=== PATIENT | male | born 1990 | race African-American/Black ===

== ENCOUNTER 2020-09-05 09:17 | Emergency (ER) | payer OTHER ==
[~2020-09-05] VITALS: Ht 180.3 cm; Wt 63.6 kg
--- NOTE | 2020-09-05 09:25 | PHYS DOC ---
Past History Past Medical History: No Pertinent History Past Surgical History: No Surgical History Smoking: Non-smoker Alcohol Use: Occasionally Drug Use: None General Adult EDM: Chief Complaint: Cough HPI: HPI: Kade is a 29-year-old male who presents with cough, sore throat, headache, and sinus congestion that started 4 days ago. The patient reports coughing up "clear" mucus and is "struggling" to sleep due to his symptoms. Patient was evaluated at [facility] on September 04 and received a negative Covid test. Patient denies fever or chills. Patient denies vomiting or diarrhea. Denies SOB at this time. Review of Systems: Review of Systems: Constitutional: Denies fever or chills Eyes: Denies redness or eye pain HENT: Reports headache, nasal congestion and sore throat Respiratory: Reports cough; denies shortness of breath Cardiovascular: Denies chest pain or palpitations GI: Denies abdominal pain, diarrhea, or vomiting : Denies dysuria or hematuria Musculoskeletal: Denies back pain or joint pain Integument: Denies rash or skin lesions Neurologic: Denies focal weakness or sensory changes Complete systems were reviewed and found to be within normal limits, except as documented in this note. Physical Exam: PE: Constitutional: Well developed, well nourished, no acute distress, non-toxic appearance HENT: Mild pharynx erythema, mildly enlarged turbinates, tympanic membrane clear/intact Eyes: Conjunctiva normal, no discharge Neck: Normal range of motion, no tenderness, supple Lungs & Thorax: No respiratory distress, equal chest rise and fall Skin: Warm, dry, no erythema, no rash Back: No tenderness, no CVA tenderness Extremities: No tenderness, ROM intact, no edema Neurologic: Alert and oriented X 3, normal motor function Psychologic: Affect normal, judgment normal Radiology/Procedures: Radiology/Procedures: PROCEDURE: CHEST AP ONLY EXAMINATION: Chest radiograph. VIEWS: Single view COMPARISON: None INDICATION:29 years, Male, cough. FINDINGS: Normal cardiomediastinal silhouette. No focal consolidation. Bilateral perihilar peribronchial cuffing. No pleural effusion or pneumothorax. No acute osseous process. IMPRESSION: Bilateral perihilar peribronchial cuffing, nonspecific findings and be seen in infectious/reactive small airway disease. No focal consolidation. Electronically signed by: Pamela Hathaway MD (09/05/2020 9:43 AM) [id number] Heart Score: C/O Chest Pain: N/A Course & Med Decision Making: Course & Med Decision Making Pertinent Imaging studies reviewed. (See chart for details) Patient presents with URI type symptoms x4 days. Afebrile. Sats stable. History of recent negative COVID-19 testing. Chest x-ray without acute finding. Symptomatic treatment provided with one-time dose of oral steroid. Patient stable for discharge with outpatient follow-up with PCP. Discussed findings and plan with patient, who acknowledges understanding and agreement. Dragon Disclaimer: Dragon Disclaimer: This electronic medical record was generated, in whole or in part, using a voice recognition dictation system. Departure Departure: Impression: Primary Impression: Upper respiratory infection Qualified Codes: J06.9 - Acute upper respiratory infection, unspecified Disposition: HOME / SELF CARE / HOMELESS Condition: STABLE Referrals: ANTONIO VASQUES DO (PCP) Patient Instructions: Upper Respiratory Infection, Adult, [id number] Additional Instructions: Use humidifier when sleeping at night. May also use [id number] cold and cough remedies as needed. Scripts Benzonatate (TESSALON PERLE) 100 Mg Capsule 100 MG PO TID PRN PRN for COUGH, #20 CAP Prov: MARIA ELENA BELL DO 09/05/20 MARIA ELENA BELL DO Sep 05, 2020 09:25
[2020-09-05 09:29] VITALS: BP 133/99
[2020-09-05] MEDS ORDERED: DEXAMETHASONE 4 MG TABLET PO ONE (09:45)
--- NOTE | 2020-09-05 09:46 | RAD ---
EXAMINATION: Chest radiograph. VIEWS: Single view COMPARISON: None INDICATION:29 years, Male, cough. FINDINGS: Normal cardiomediastinal silhouette. No focal consolidation. Bilateral perihilar peribronchial cuffin g. No pleural effusion or pneumothorax. No acute osseous process. IMPRESSION: Bilateral perihilar peribronchial cuffing, nonspecific findings and be seen in infectious/reactive sm all airway disease. No focal consolidation. Electronically signed by: Pamela Hathaway MD (09/05/2020 9:43 AM) [id number]
[2020-09-05] MEDS ORDERED: BENZ100C PO (09:52)
== END 2020-09-05 09:58 | disposition home or self-care (01) ==
LOC: ER 09:17
DX: J06.9 Acute upper respiratory infection, unspecified (principal)
CPT/HCPCS: 71045; 99283; J8540

== ENCOUNTER 2020-11-16 21:00 | Emergency (ER) | payer OTHER ==
[~2020-11-16] VITALS: Ht 180.3 cm; Wt 59.1 kg
[~2020-11-16 21:00] MED LIST: BENZ100C PO
--- NOTE | 2020-11-16 21:26 | PHYS DOC ---
Past History Past Medical History: No Pertinent History (ABDON GUDINO APRN) Past Surgical History: No Surgical History (ABDON GUDINO APRN) Smoking: Non-smoker Alcohol Use: Occasionally Drug Use: None (ABDON GUDINO APRN) General Adult EDM: Chief Complaint: DIZZY/LIGHT HEADED HPI: HPI: Patient is a 30-year-old male being seen in the ER for lightheadedness. He describes it as feeling off balance. He states that the symptoms started this morning. He is also complaining of nausea and vomiting, stating that he vomited 3 times today. Patient states he believes he is dehydrated. Patient has a history of intermittent dizziness and had an MRI and vestibular testing last year with no acute findings. Patient denies any chest pain, vision changes, headache, injury. Patient reports that his symptoms have improved throughout the day but are still present. (ABDON GUDINO APRN) Review of Systems: Review of Systems: 14 body systems of the review of systems have been reviewed. See HPI for pertinent positive and negative responses, otherwise all other systems are negative, nonpertinent or noncontributory (ABDON GUDINO APRN) Current Medications: Current Meds: Current Medications Medications (Trade) Dose Ordered Sig/Tyrone Start Time Stop Time Status Last Admin Dose Admin Meclizine HCl (Antivert) 25 mg 1X ONCE 11/16/20 21:45 11/16/20 21:46 Ondansetron HCl (Zofran) 4 mg 1X ONCE 11/16/20 21:45 11/16/20 21:46 Sodium Chloride 1,000 ml @ 1,000 mls/hr 1X ONCE 11/16/20 21:30 11/16/20 22:29 (ABDON GUDINO APRN) Allergies: Allergies: Allergies Coded Allergies Type Severity Reaction Last Updated Verified No Known Drug Allergies 09/05/20 No (ABDON GUDINO APRN) Physical Exam: PE: Constitutional: Well developed, well nourished, no acute distress, non-toxic appearance. [] HENT: Normocephalic, atraumatic, bilateral external ears normal, oropharynx moist, no oral exudates, nose normal. [] Eyes: PERRLA, EOMI, 5 mm pupils bilaterally, conjunctiva normal, no discharge. [] Neck: Normal range of motion, no stridor Cardiovascular:Heart rate tachycardic rhythm, no murmur [] Lungs & Thorax: Bilateral breath sounds clear to auscultation [] Abdomen: Bowel sounds normal, soft, no tenderness, no masses, no pulsatile masses. [] Skin: Warm, dry, no erythema, no rash. [] Back: Normal range of motion Extremities: No tenderness, no cyanosis, no clubbing, ROM intact, no edema. [] Neurologic: Alert and oriented X 3, normal motor function, normal sensory function, no focal deficits noted. [] Psychologic: Affect normal, judgement normal, mood normal. [] (ABDON GUDINO APRN) Current Patient Data: Vital Signs: Vital Signs Date Time Temp Pulse Resp B/P (MAP) Pulse Ox O2 Delivery O2 Flow Rate FiO2 11/16/20 21:08 99.1 130 16 148/95 (112) 97 Room Air (ABDON GUDINO APRN) EKG: EKG: [] (ABDON GUDINO APRN) EKG: My interpretation EKG shows a sinus rhythm at 94 bpm. Right bundle branch block. No findings acute STEMI of, lateral changes. Time of EKG is 2218 hrs. (ROLAND WOOD MD) Radiology/Procedures: Radiology/Procedures: PROCEDURE: CT HEAD WO CONTRAST Exam: CT head INDICATION: Dizziness TECHNIQUE: Sequential axial images through the head were obtained without the administration of IV contrast. Exposure: One or more of the following in the visualized dose reduction techniques were utilized for this examination: 1. Automated exposure control 2. Adjustment of the MA and/or KV according to patient size 3. Use of iterative of reconstructive technique Comparisons: None FINDINGS: No focal parenchymal lesion or hemorrhage is identified. There is no midline shift or sulcal effacement. No acute vascular territory infarction is identified. Shipman-white distinction is preserved. The ventricular system is within normal limits without compression hydrocephalus. The basal cisterns are well maintained. The visualized portions of the paranasal sinuses and mastoid air cells are well- pneumatized. No acute fractures. IMPRESSION: No acute intracranial abnormality. Electronically signed by: Thompson Malloy MD (11/16/2020 9:58 PM) [facility] DICTATED AND SIGNED BY: THOMPSON MALLOY MD DATE: 11/16/202156 CC: ANTONIO VASQUES DO; ABDON GUDINO APRN ~MTH0 0 [] (ABDON GUDINO APRN) Radiology/Procedures: [place] [address] IMAGING REPORT Signed PATIENT: OVIDIO SOOD ACCOUNT: [id number] : 1990 LOCATION: ER AGE: 30 SEX: M EXAM STATUS: REG ER ORD. PHYSICIAN: ABDON GUDINO APRN REASON: dizziness PROCEDURE: CT HEAD WO CONTRAST Exam: CT head INDICATION: Dizziness TECHNIQUE: Sequential axial images through the head were obtained without the administration of IV contrast. Exposure: One or more of the following in the visualized dose reduction techniques were utilized for this examination: 1. Automated exposure control 2. Adjustment of the MA and/or KV according to patient size 3. Use of iterative of reconstructive technique Comparisons: None FINDINGS: No focal parenchymal lesion or hemorrhage is identified. There is no midline shift or sulcal effacement. No acute vascular territory infarction is identified. Shipman-white distinction is preserved. The ventricular system is within normal limits without compression hydrocephalus. The basal cisterns are well maintained. The visualized portions of the paranasal sinuses and mastoid air cells are well- pneumatized. No acute fractures. IMPRESSION: No acute intracranial abnormality. Electronically signed by: Thompson Malloy MD (11/16/2020 9:58 PM) [facility] DICTATED AND SIGNED BY: THOMPSON MALLOY MD DATE: 11/16/202156 CC: ANTONIO VASQUES DO; ABDON GUDINO APRN ~MTH0 0 (ROLAND WOOD MD) Heart Score: C/O Chest Pain: No Risk Factors: Risk Factors: DM, Current or recent (<one month) smoker, HTN, HLP, family history of CAD, obesity. Risk Scores: Score 0 - 3: 2.5% MACE over next 6 weeks - Discharge Home Score 4 - 6: 20.3% MACE over next 6 weeks - Admit for Clinical Observation Score 7 - 10: 72.7% MACE over next 6 weeks - Early Invasive Strategies (ABDON GUDINO APRN) Course & Med Decision Making: Course & Med Decision Making Pertinent Labs and Imaging studies reviewed. (See chart for details) Patient is a 30-year-old male being seen in the ER for feeling lightheaded and off balance with nausea and vomiting. Patient was noted to be tachycardic in the ER. Work-up in the ER consisted of blood work, EKG, CT scan of head. Patient was treated with fluids, nausea medication and Antivert. I discussed patients case with Dr. Wood and he will assume patient care at this time. Lab work pending at this time 2157. (ABDON GUDINO APRN) Course & Med Decision Making See Shadi chart for details prior 0 hrs. Patient gargle with Listerine 4 times a day. Take Tylenol and ibuprofen for pain. Push fluids. Self isolate. Get flu vaccination this fall. Follow-up Co vid results. Impression: 1. Dizzy 2. Dehydration 3. Leukocytosis 4. Viral Syndrome 5. Complaints of pharyngitis. (ROLAND WOOD MD) Dragon Disclaimer: Dragon Disclaimer: This electronic medical record was generated, in whole or in part, using a voice recognition dictation system. (ABDON GUDINO APRN) Departure Departure: Referrals: ANTONIO VASQUES DO (PCP) Attending Signature Attending Signature I have participated in the care of this patient and I have reviewed and agree with all pertinent clinical information above including history, exam, and recommendations. (ROLAND WOOD MD) Dragon Disclaimer This chart was dictated in whole or in part using Voice Recognition software in a busy, high-work load, and often noisy Emergency Department environment. It may contain unintended and wholly unrecognized errors or omissions. (ROLAND WOOD MD) Dragon Disclaimer This chart was dictated in whole or in part using Voice Recognition software in a busy, high-work load, and often noisy Emergency Department environment. It may contain unintended and wholly unrecognized errors or omissions. (ROLAND WOOD MD) ABDON GUDINO APRN Nov 16, 2020 21:26 ROLNAD WOOD MD Nov 16, 2020 22:13
[2020-11-16] MEDS ORDERED: IV NORMAL SALINE 1,000ML 1,000 ML IV ONE (21:30)
[2020-11-16] MEDS ORDERED: ONDANSETRON PF 4 MG/2 ML VIAL. IVP ONE ×2 (21:45→23:30)
[2020-11-16] MEDS ORDERED: MECLIZINE 12.5 MG TABLET. PO ONE (21:45)
--- NOTE | 2020-11-16 22:01 | RAD ---
Exam: CT head INDICATION: Dizziness TECHNIQUE: Sequential axial images through the head were obtained without the administration of IV co ntrast. Exposure: One or more of the following in the visualized dose reduction techniques were utilized for this examination: 1. Automated exposure control 2. Adjustment of the MA and/or KV according to patient size 3. Use of iterative of reconstructive technique Comparisons: None FINDINGS: No focal parenchymal lesion or hemorrhage is identified. There is no midline shift or sulcal effaceme nt. No acute vascular territory infarction is identified. Shipman-white distinction is preserved. The ventricular system is within normal limits without compression hydrocephalus. The basal cisterns are well maintained. The visualized portions of the paranasal sinuses and mastoid air cells are well-pneumatized. No acute fractures. IMPRESSION: No acute intracranial abnormality. Electronically signed by: Thompson Franco MD (11/16/2020 9:58 PM) JUAN PABLO
[2020-11-16 22:05] LABS: BASO # 0.1 x10^3/uL (0.0-0.2); BASO % 0 % (0-3); EOS % 0 % (0-3); HEMATOCRIT 48.3 % (39.0-53.0); LYMPH # 1.3 x10^3/uL (1.0-4.8); LYMPH % 6 % (24-48); MEAN CORPUSCULAR HEMOGLOBIN 31 pg (25-35); MEAN CORPUSCULAR HGB CONC 33 g/dL (31-37); MEAN CORPUSCULAR VOLUME 92 fL (79-100); MONO # 0.9 x10^3/uL (0.0-1.1); MONO % 4 % (0-9); NEUT # 19.1 x10^3uL (1.8-7.7); NEUT % 90 % (31-73); PLATELET COUNT 265 x10^3/uL (140-400); RED BLOOD COUNT 5.22 x10^6/uL (4.30-5.70); RED CELL DISTRIBUTION WIDTH 12.8 % (11.5-14.5); WHITE BLOOD COUNT 21.3 x10^3/uL (4.0-11.0)
[2020-11-16 22:17] LABS: CALCIUM 9.4 mg/dL (8.5-10.1); CREATININE 1.4 mg/dL (0.7-1.3); POTASSIUM 4.5 mmol/L (3.5-5.1)
[2020-11-16 22:23] LABS: ALBUMIN 4.3 g/dL (3.4-5.0); ALBUMIN/GLOBULIN RATIO 1.2 (1.0-1.7); TOTAL BILIRUBIN 0.8 mg/dL (0.2-1.0); TOTAL PROTEIN 7.8 g/dL (6.4-8.2)
[2020-11-16 22:40] LABS: % BANDS 7 % (0-9); % LYMPHS 7 % (24-48); % MONOS 1 % (0-10); % SEGS 85 % (35-66); PLT ESTIMATE ADEQUATE (ADEQUATE)
--- NOTE | 2020-11-17 00:37 | EKG ---
[address] [address] Test Date: 2020-11-16 Test Time: 22:18:08 Pat Name: OVIDIO SOOD Department: Room: Gender: M [employer]: : 1990 Requested By: ABDON GUDINO Order Number: [id number] Reading MD: Measurements Intervals [place] Rate: 94 P: 80 NM: 142 QRS: 26 QRSD: 80 T: 75 QT: 320 QTc: 405 Interpretive Statements SINUS RHYTHM INCOMPLETE RIGHT BUNDLE BRANCH BLOCK T ABNORMALITY IN HIGH LATERAL LEADS ABNORMAL ECG RI6.02 No previous ECG available for comparison
[2020-11-17 01:47] LABS: INFLUENZA A PATIENT NEGATIVE (NEGATIVE); INFLUENZA B PATIENT NEGATIVE (NEGATIVE)
[2020-11-17 02:00] VITALS: BP 136/72
--- NOTE | 2020-11-19 14:32 | NUR ---
IP: Informed pt and pt of negative covid test, verbalized understanding.
== END 2020-11-17 02:12 | disposition home or self-care (01) ==
LOC: ER 21:00
DX: E86.0 Dehydration (principal); R42 Dizziness and giddiness; D72.829 Elevated white blood cell count, unspecified; B34.9 Viral infection, unspecified; J02.9 Acute pharyngitis, unspecified; Z20.822 Contact with and (suspected) exposure to COVID-19
CPT/HCPCS: 36415; 70450; 80053; 84484; 85007; 85025; 87070; 87804; 87880; 93005; 96361; 96374; 96375; 99285; C9803; J2405; J7030; U0003

== ENCOUNTER 2020-12-27 07:24 | Emergency (ER) | payer OTHER ==
[~2020-12-27] VITALS: Ht 180.3 cm; Wt 65.9 kg
--- NOTE | 2020-12-27 07:35 | PHYS DOC ---
Past History Past Medical History: No Pertinent History Past Surgical History: No Surgical History Smoking: Non-smoker Alcohol Use: Occasionally Drug Use: None Adult General Chief Complaint Chief Complaint: HEADACHE HPI HPI Patient is a 30-year-old male who presents with headaches for the past 2 days. He was diagnosed with migraines a year ago which were accompanied with his dizziness double vision which have improved on Lexapro. Patient's current migraine started 2 days ago and has not improved with Tylenol, sleep or cold compresses. Pain is throbbing in character started at the top of his head moved to the left side and currently its at the front of his head bilaterally. He denies fever, chills, nausea, vomiting, chest pains, or shortness of breath. Pain is worse when he does not consume food or gets poor sleep. Currently nothing has improved his pain. Pain is constant and 7 out of 10 in severity. He drinks 1 beer per month and denies any recreational drug use. He used to smoke cigarettes, he smoked 1 cigarette/day for 3 years and quit 4 years ago. H e denies past surgical history or having allergies. Review of Systems Review of Systems Fourteen body systems of review of systems have been reviewed. See HPI for pertinent positives and negative responses, other waters all other systems are negative, non-pertinent or non-contributory Allergies Allergies Allergies Coded Allergies Type Severity Reaction Last Updated Verified No Known Drug Allergies 09/05/20 No Physical Exam Physical Exam Constitutional: Well developed, well nourished, no acute distress, non-toxic appearance. HENT: Normocephalic, atraumatic, bilateral external ears normal, oropharynx moist, no oral exudates, nose normal. Eyes: PERRLA, EOMI, conjunctiva normal, no discharge. Neck: Normal range of motion, no tenderness, supple, no stridor. No meningeal signs, no nuchal rigidity Cardiovascular: Heart rate regular, sinus rhythm, no murmurs rubs or gallops Lungs & Thorax: Bilateral breath sounds clear to auscultation Abdomen: Bowel sounds normal, soft, no tenderness, no masses, no pulsatile masses. Nonsurgical abdomen, no peritoneal signs Skin: Warm, dry, no erythema, no rash. Back: No tenderness, no CVA tenderness. Extremities: No tenderness, no cyanosis, no clubbing, ROM intact, no edema. Neurologic: Alert and oriented X 3, cranial nerves II through XII intact, normal motor & sensory function, no focal deficits noted. Psychologic: Affect normal, judgement normal, mood normal. Current Patient Data Vital Signs Vital Signs Date Time Temp Pulse Resp B/P (MAP) Pulse Ox O2 Delivery O2 Flow Rate FiO2 12/27/20 07:34 98.7 66 18 137/94 (108) 95 Room Air Vital Signs Date Time Temp Pulse Resp B/P (MAP) Pulse Ox O2 Delivery O2 Flow Rate FiO2 12/27/20 07:34 98.7 66 18 137/94 (108) 95 Room Air EKG EKG [] Radiology/Procedures Radiology/Procedures [] Heart Score C/O Chest Pain: No Risk Factors: Risk Factors: DM, Current or recent (<one month) smoker, HTN, HLP, family history of CAD, obesity. Risk Scores: Risk Factors: DM, Current or recent (<one month) smoker, HTN, HLP, family history of CAD, obesity. Course & Med Decision Making Course & Med Decision Making ABCs unremarkable. I disclosed entirety of ER findings and discussed most likely diagnosis of migraine headache consistent with prior episodes. Other diagnoses were discussed with patient such as meningitis and other concerning intracranial abnormalities but all deemed less likely causes of patient's presentation. Patient symptoms improved with administered therapy in ER setting. Plan of care discussed at length with need for close outpatient follow-up to review today's ER visit stressed. Strict return precautions were also discussed at length with good understanding verbalized by patient. Patient voiced understanding and agreement with the plan. Patient knows to come back for repeat evaluation if concerning signs or symptoms present prior to outpatient follow-up. Hemodynamically stable, ambulatory and well-appearing at time of disposition. Dragon Disclaimer Dragon Disclaimer This electronic medical record was generated, in whole or in part, using a voice recognition dictation system. Departure Departure: Impression: Primary Impression: Migraine Disposition: HOME / SELF CARE / HOMELESS Condition: IMPROVED Referrals: ANTONIO VASQUES DO (PCP) Patient Instructions: Migraine Headache Additional Instructions: You were seen for a headache. Your symptoms improved with a headache medication, an anti-nausea medication and gentle fluid hydration. You should return to the ED if you develop worsening pain, vision change, numbness, tingling, weakness, vomiting, fever, neck pain, or any other new or concerning symptoms. You need to follow up with your primary care physician in addition to your outpatient neurologist further evaluation and treatment. ROMELIA HUMPHREY DO Dec 27, 2020 07:35
[2020-12-27] MEDS ORDERED: PROCHLORPERAZINE 10 MG/2 ML VIAL. ONE (08:06)
[2020-12-27] MEDS ORDERED: diphenhydrAMINE 50 MG/ML VIAL ONE (08:06)
[2020-12-27] MEDS ORDERED: diphenhydrAMINE 50 MG/ML VIAL IVP ONE (08:15)
[2020-12-27] MEDS ORDERED: IV NORMAL SALINE 1,000ML 1,000 ML IV ONE (08:15)
[2020-12-27] MEDS ORDERED: PROCHLORPERAZINE 10 MG/2 ML VIAL. IV ONE (08:15)
[2020-12-27 08:59] VITALS: BP 128/74
== END 2020-12-27 09:31 | disposition home or self-care (01) ==
LOC: ER 07:24
DX: G43.909 Migraine, unspecified, not intractable, without status migrainosus (principal)
CPT/HCPCS: 96361; 96374; 96375; 99284; J0780; J1200; J7030

== ENCOUNTER 2021-02-11 12:41 | Emergency (ER) | payer OTHER ==
[~2021-02-11] VITALS: Ht 180.3 cm; Wt 59.7 kg
[2021-02-11] MEDS ORDERED: ONDANSETRON ODT 4 MG TAB.RAPDIS PO ONE (13:15)
--- NOTE | 2021-02-11 13:18 | PHYS DOC ---
Past History Past Medical History: No Pertinent History (MARIA ELENA TAI APRN) Past Surgical History: No Surgical History (MARIA ELENA TAI APRN) Smoking: Non-smoker Alcohol Use: None Drug Use: None (MARIA ELENA TAI APRN) Adult General Chief Complaint Chief Complaint: NAUSEA/VOMITING/DIARRHEA HPI HPI Patient is a 30-year-old male presents emergency department complaining of nausea. Patient reports he developed a migraine last night and took his migraine medication. Patient reports when he takes his migraine medication in the evening time he gets periods of nausea. This happened again today. Patient denies any vomiting today. Patient reports his migraine has resolved and he has ongoing nausea at this time only. Patient reports this migraine onset was normal for his normal migraines and is currently rating a 1 out of 10 pain. Denies diarrhea or abdominal pains. Denies recent fever or chills. Denies chest pains or shortness of breath, denies other physical complaints or physical concerns. (MARIA ELENA TAI APRN) Review of Systems Review of Systems 14 body systems of review of systems have been reviewed. See HPI for pertinent positives and negative responses, otherwise all other systems are negative, nonpertinent or noncontributory. Constitutional: Negative except as outlined in HPI above. Skin: Negative except as outlined in HPI above. Eyes: Negative except as outlined in HPI above. HENT: Negative except as outlined in HPI above. Respiratory: Negative except as outlined in HPI above. Cardiovascular: Negative except as outlined in HPI above. GI: Negative except as outlined in HPI above. : Negative except as outlined in HPI above. Musculoskeletal: Negative except as outlined in HPI above. Integument: Negative except as outlined in HPI above. Neurologic: Negative except as outlined in HPI above. Endocrine: Negative except as outlined in HPI above. Lymphatic: Negative except as outlined in HPI above. Psychiatric: Negative except as outlined in HPI above. (MARIA ELENA TAI APRN) Allergies Allergies Allergies Coded Allergies Type Severity Reaction Last Updated Verified No Known Drug Allergies 09/05/20 No (MARIA ELENA TAI APRN) Physical Exam Physical Exam Constitutional: Well developed, well nourished, no acute distress, non-toxic appearance. 30-year-old male in no apparent distress. HENT: Normocephalic, atraumatic. Eyes: Conjunctiva normal, no discharge. Neck: Normal range of motion, no stridor. Cardiovascular: No cyanosis appreciated, distal cap refill less than 2 seconds. Lungs & Thorax: Patient is in no respiratory distress, no audible adventitious lung sounds appreciated. Abdomen: Nontender, no abnormalities noted. Skin: Warm, dry, no erythema, no rash. Back: No tenderness, no deformities. Extremities: No tenderness, no cyanosis, no clubbing, ROM intact, no edema. Neurologic: Alert and oriented X 3, normal motor function, normal sensory function, no focal deficits noted. Psychologic: Affect normal, judgement normal, mood normal. (MARIA ELENA TAI APRN) Current Patient Data Vital Signs Vital Signs Date Time Temp Pulse Resp B/P (MAP) Pulse Ox O2 Delivery O2 Flow Rate FiO2 02/11/21 13:05 98.7 73 18 134/89 (104) 98 Room Air (MARIA ELENA TAI APRN) EKG EKG [] (MARIA ELENA TAI APRN) Radiology/Procedures Radiology/Procedures [] (MARIA ELENA TAI APRN) Heart Score C/O Chest Pain: No Risk Factors: Risk Factors: DM, Current or recent (<one month) smoker, HTN, HLP, family history of CAD, obesity. Risk Scores: Risk Factors: DM, Current or recent (<one month) smoker, HTN, HLP, family history of CAD, obesity. (MARIA ELENA TAI APRN) Course & Med Decision Making Course & Med Decision Making Pertinent Labs and Imaging studies reviewed. (See chart for details) 30-year-old male, vital signs reviewed, resents emergency department concerning nausea without vomiting. Physical examination nonconcerning for an emergent condition, will order ODT Zofran for reported nausea and reevaluate after period of time. Upon reevaluation of patient, patient reports resolution of all his symptoms, states he is ready to go home now. P.o. challenge patient drinking water without returning nausea or vomiting. Will discharge patient to home. Discussed with the patient all findings and diagnostic testing as well as the need to follow-up with their primary care provider for further evaluation and treatment or return to the ED if any new or worsening symptoms. Strict return precautions were also discussed at length, the patient voiced understanding and agreement with the discharge planning. The patient was nontoxic in appearance, in no apparent distress, and hemodynamically stable at the time of disposition. (MARIA ELENA TAI APRN) Dragon Disclaimer Dragon Disclaimer This electronic medical record was generated, in whole or in part, using a voice recognition dictation system. (MARIA ELENA TAI APRN) Attending Co-Sign The patient was seen and interviewed as well as examined at the bedside. The chart was reviewed. The case was discussed. Agree with the plan of care. (SIVA FARAH DO) Departure Departure: Impression: Primary Impression: Nausea Disposition: HOME / SELF CARE / HOMELESS Condition: GOOD Referrals: ANTONIO VASQUES DO (PCP) Patient Instructions: Nausea, Adult Additional Instructions: You are seen today in the emergency department for nausea. You are given an oral dose of Zofran which seemed to help you. Please follow-up with your primary care physician for ongoing nausea problems. Return to the emergency department for worsening symptoms or other concerns. Thank you for visiting our Emergency Department. It was a pleasure taking care of you today in the emergency department and we appreciate you trusting us with your care. If any additional problems come up don't hesitate to return to visit us. Please follow up with your primary care provider so they can plan additional care if needed and know about the problem that you had. If symptoms worsen come back to the Emergency Department. Any concerning symptoms that start such as chest pain, shortness of air, weakness or numbness on one side of the body, running high fevers or any other concerning symptoms return to the ER. MARIA ELENA TAI APRN Feb 11, 2021 13:18 SIVA FARAH DO Feb 13, 2021 10:53
[2021-02-11 14:30] VITALS: BP 128/87
== END 2021-02-11 14:54 | disposition home or self-care (01) ==
LOC: ER 12:41
DX: R11.0 Nausea (principal); G43.909 Migraine, unspecified, not intractable, without status migrainosus
CPT/HCPCS: 99283; Q0162

== ENCOUNTER 2021-02-23 12:45 | Emergency (ER) | payer OTHER ==
[~2021-02-23] VITALS: Ht 180.3 cm; Wt 68.2 kg
[2021-02-23 13:01] VITALS: BP 138/95
--- NOTE | 2021-02-23 13:01 | PHYS DOC ---
Past History Past Medical History: No Pertinent History Past Surgical History: No Surgical History Smoking: Non-smoker Alcohol Use: None Drug Use: None General Adult EDM: Chief Complaint: Fatigue HPI: HPI: 30-year-old male presents with 2-day history of cough, fatigue, body aches, nasal congestion. The patient has not noticed a fever at home. He is vaccinated against COVID-19 with his second vaccine in November. He got his influenza vaccine about a week ago. Patient presents today with concern for COVID-19 and would like to be tested. He denies significant shortness of breath or chest pain. Review of Systems: Review of Systems: Constitutional: Denies fever or chills. Body aches, fatigue. Eyes: Denies change in visual acuity HENT: Nasal congestion Respiratory: Intermittent cough without shortness of breath Cardiovascular: Denies chest pain or edema GI: Denies abdominal pain, nausea, vomiting, bloody stools or diarrhea : Denies dysuria Musculoskeletal: Denies back pain or joint pain Integument: Denies rash Neurologic: Denies headache, focal weakness or sensory changes Endocrine: Denies polyuria or polydipsia Lymphatic: Denies swollen glands Psychiatric: Denies depression or anxiety Allergies: Allergies: Allergies Coded Allergies Type Severity Reaction Last Updated Verified No Known Drug Allergies 09/05/20 No Physical Exam: PE: Constitutional: Well developed, well nourished, no acute distress, non-toxic appearance. [] HENT: Normocephalic, atraumatic, bilateral external ears normal, oropharynx moist, no oral exudates, nose normal. [] Eyes: PERRLA, EOMI, conjunctiva normal, no discharge. [] Neck: Normal range of motion, no tenderness, supple, no stridor. [] Cardiovascular: Heart rate regular rhythm, no murmur [] Lungs & Thorax: Bilateral breath sounds clear to auscultation [] Abdomen: Bowel sounds normal, soft, no tenderness, no masses, no pulsatile masses. [] Skin: Warm, dry, no erythema, no rash. [] Back: No tenderness, no CVA tenderness. [] Extremities: No tenderness, no cyanosis, no clubbing, ROM intact, no edema. [] Neurologic: Alert and oriented X 3, normal motor function, normal sensory function, no focal deficits noted. [] Psychologic: Affect normal, judgement normal, mood normal. [] EKG: EKG: [] Radiology/Procedures: Radiology/Procedures: [] Heart Score: C/O Chest Pain: N/A Risk Factors: Risk Factors: DM, Current or recent (<one month) smoker, HTN, HLP, family history of CAD, obesity. Risk Scores: Score 0 - 3: 2.5% MACE over next 6 weeks - Discharge Home Score 4 - 6: 20.3% MACE over next 6 weeks - Admit for Clinical Observation Score 7 - 10: 72.7% MACE over next 6 weeks - Early Invasive Strategies Course & Med Decision Making: Course & Med Decision Making Pertinent Labs and Imaging studies reviewed. (See chart for details) We have swabbed the patient for influenza and COVID-19. COVID-19 results would not be available till at least tomorrow. The patient's influenza is negative. This is likely viral URI. He is stable for discharge at this time. [] Dragon Disclaimer: Dragon Disclaimer: This electronic medical record was generated, in whole or in part, using a voice recognition dictation system. Departure Departure: Impression: Primary Impression: URI (upper respiratory infection) Disposition: HOME / SELF CARE / HOMELESS Condition: STABLE Referrals: PCP,UNKNOWN (PCP) Patient Instructions: Upper Respiratory Infection, Adult, [id number] SIVA FARAH DO Feb 23, 2021 13:01
[2021-02-23 13:46] LABS: INFLUENZA A PATIENT NEGATIVE (NEGATIVE); INFLUENZA B PATIENT NEGATIVE (NEGATIVE)
== END 2021-02-23 14:02 | disposition home or self-care (01) ==
LOC: ER 12:45
DX: U07.1 COVID-19 (principal); J06.9 Acute upper respiratory infection, unspecified
CPT/HCPCS: 87804; 99283; C9803; U0003

== ENCOUNTER 2021-03-19 12:26 | Emergency (ER) | payer OTHER ==
[~2021-03-19] VITALS: Ht 180.3 cm; Wt 68.2 kg
--- NOTE | 2021-03-19 14:41 | PHYS DOC ---
Past History Past Medical History: No Pertinent History Past Surgical History: No Surgical History Smoking: Non-smoker Alcohol Use: None Drug Use: None General Adult EDM: Chief Complaint: MULTIPLE COMPLAINTS HPI: HPI: 30-year-old male presents with headache, dizziness, and brain fog. The patient has had the symptoms for about a year and a half. He has seen a neurologist and a primary care physician and had a pretty extensive work-up. He presents today because he had the symptoms again last night and when he woke up this morning he had a headache and dizziness and was unable to go to work. He describes the dizziness as a lightheaded, off-balance feeling. He states he can tell that he does not walk straight. He decided he should come in for evaluation since he was not feeling any better compared to last night. The symptoms usually abdomen flow and go away or at least decrease significantly overnight. The only pattern to his symptoms as they seem to get worse about an hour after he eats. It does not matter what he eats or when. He denies fever or chills. He has an appointment set up with a new primary care physician in about a week. Denies any smoking, vaping, drug or alcohol use. Review of Systems: Review of Systems: Constitutional: Denies fever or chills Eyes: Denies change in visual acuity HENT: Denies nasal congestion or sore throat Respiratory: Denies cough or shortness of breath Cardiovascular: Denies chest pain or edema GI: Denies abdominal pain, nausea, vomiting, bloody stools or diarrhea : Denies dysuria Musculoskeletal: Denies back pain or joint pain Integument: Denies rash Neurologic: Headache, dizziness. Denies focal weakness or sensory changes Endocrine: Denies polyuria or polydipsia Lymphatic: Denies swollen glands Psychiatric: Denies depression or anxiety Allergies: Allergies: Allergies Coded Allergies Type Severity Reaction Last Updated Verified No Known Drug Allergies 09/05/20 No Physical Exam: PE: Constitutional: Well developed, well nourished, no acute distress, non-toxic appearance. [] HENT: Normocephalic, atraumatic, bilateral external ears normal, oropharynx moist, no oral exudates, nose normal. [] Eyes: PERRLA, EOMI, conjunctiva normal, no discharge. [] Neck: Normal range of motion, no tenderness, supple, no stridor. [] Cardiovascular:Heart rate regular rhythm, no murmur [] Lungs & Thorax: Bilateral breath sounds clear to auscultation [] Abdomen: Bowel sounds normal, soft, no tenderness, no masses, no pulsatile masses. [] Skin: Warm, dry, no erythema, no rash. [] Back: No tenderness, no CVA tenderness. [] Extremities: No tenderness, no cyanosis, no clubbing, ROM intact, no edema. [] Neurologic: Alert and oriented X 3, normal motor function, normal sensory function, no focal deficits noted. [] Psychologic: Affect normal, judgement normal, mood normal. [] Current Patient Data: Vital Signs: Vital Signs Date Time Temp Pulse Resp B/P (MAP) Pulse Ox O2 Delivery O2 Flow Rate FiO2 03/19/21 13:54 98.5 83 16 129/89 (102) 100 Room Air EKG: EKG: [] Radiology/Procedures: Radiology/Procedures: [] Heart Score: C/O Chest Pain: N/A Risk Factors: Risk Factors: DM, Current or recent (<one month) smoker, HTN, HLP, family history of CAD, obesity. Risk Scores: Score 0 - 3: 2.5% MACE over next 6 weeks - Discharge Home Score 4 - 6: 20.3% MACE over next 6 weeks - Admit for Clinical Observation Score 7 - 10: 72.7% MACE over next 6 weeks - Early Invasive Strategies Course & Med Decision Making: Course & Med Decision Making Pertinent Labs and Imaging studies reviewed. (See chart for details) The patient labs are unremarkable. I really do not have anything else to offer the patient. I have advised that he continue to follow-up with his new primary doctor and neurology. He may even consider second opinion from another neurologist. He is stable for discharge at this time. [] Dragon Disclaimer: Dragon Disclaimer: This electronic medical record was generated, in whole or in part, using a voice recognition dictation system. Departure Departure: Impression: Primary Impression: Headache Qualified Codes: R51.9 - Headache, unspecified Additional Impression: Dizziness Disposition: HOME / SELF CARE / HOMELESS Condition: STABLE Referrals: PCP,UNKNOWN (PCP) Patient Instructions: Dizziness, [id number], General Headache Without Cause, [id number] SIVA FARAH DO Mar 19, 2021 14:41
[2021-03-19] MEDS ORDERED: IV NORMAL SALINE 1,000ML 1,000 ML IV ONE (14:45)
[2021-03-19 15:48] LABS: BASO % 1 % (0-3); EOS % 0 % (0-3); HEMATOCRIT 44.5 % (39.0-53.0); LYMPH # 1.3 x10^3/uL (1.0-4.8); LYMPH % 21 % (24-48); MEAN CORPUSCULAR HEMOGLOBIN 31 pg (25-35); MEAN CORPUSCULAR HGB CONC 34 g/dL (31-37); MEAN CORPUSCULAR VOLUME 93 fL (79-100); MONO # 0.5 x10^3/uL (0.0-1.1); MONO % 8 % (0-9); NEUT # 4.3 x10^3uL (1.8-7.7); NEUT % 69 % (31-73); PLATELET COUNT 228 x10^3/uL (140-400); RED BLOOD COUNT 4.78 x10^6/uL (4.30-5.70); RED CELL DISTRIBUTION WIDTH 13.2 % (11.5-14.5); WHITE BLOOD COUNT 6.2 x10^3/uL (4.0-11.0)
[2021-03-19 16:04] LABS: BILIRUBIN,URINE NEG (NEG); CLARITY,URINE CLEAR; COLOR,URINE YELLOW; GLUCOSE,URINE NEG (NEG)
[2021-03-19 16:05] LABS: BACTERIA,URINE 0 /HPF (0-FEW); NITRITE,URINE NEG (NEG); RBC,URINE 0 /HPF (0-2); UROBILINOGEN,URINE 0.2 mg/dL (0.2 mg/dL); WBC,URINE 0 /HPF (0-4)
[2021-03-19 16:08] LABS: ANION GAP 9 (6-14); BLOOD UREA NITROGEN 13 mg/dL (8-26); BUN/CREATININE RATIO 12 (6-20); CALCIUM 9.2 mg/dL (8.5-10.1); CARBON DIOXIDE 29 mmol/L (21-32); CHLORIDE 102 mmol/L (98-107); CREATININE 1.1 mg/dL (0.7-1.3); GFR 95.1; GLUCOSE 93 mg/dL (70-99); POTASSIUM 4.9 mmol/L (3.5-5.1); SODIUM 140 mmol/L (136-145)
[2021-03-19 16:14] LABS: ALBUMIN 4.5 g/dL (3.4-5.0); ALBUMIN/GLOBULIN RATIO 1.5 (1.0-1.7); ALK PHOS 55 U/L (46-116); ALT (SGPT) 18 U/L (16-63); AST (SGOT) 17 U/L (15-37); TOTAL BILIRUBIN 0.5 mg/dL (0.2-1.0); TOTAL PROTEIN 7.6 g/dL (6.4-8.2)
[2021-03-19 16:21] LABS: C REACTIVE PROTEIN < 0.5 mg/L (0-3.3)
[2021-03-19 16:38] VITALS: BP 120/77
== END 2021-03-19 16:39 | disposition home or self-care (01) ==
LOC: ER 12:26
DX: R51.9 Headache, unspecified (principal); R42 Dizziness and giddiness
CPT/HCPCS: 36415; 80053; 81001; 82550; 85025; 86140; 96360; 99283; J7030

== ENCOUNTER 2021-03-23 10:57 | Emergency (ER) | payer OTHER ==
[~2021-03-23] VITALS: Ht 180.3 cm; Wt 61.8 kg
[2021-03-23] MEDS ORDERED: ONDANSETRON PF 4 MG/2 ML VIAL. IVP ONE (11:30)
[2021-03-23] MEDS ORDERED: IV NORMAL SALINE 1,000ML 1,000 ML IV ONE (11:30)
[2021-03-23] MEDS ORDERED: LIDO:MAALOX 1:1 20 ML SINGLE DOSE. PO ONE (11:30)
--- NOTE | 2021-03-23 11:34 | PHYS DOC ---
Past History Past Medical History: No Pertinent History (ABDON GUDINO APRN) Past Surgical History: No Surgical History (ABDON GUDINO APRN) Smoking: Non-smoker Alcohol Use: None Drug Use: None (ABDON GUDINO APRN) General Adult EDM: Chief Complaint: NAUSEA/VOMITING/DIARRHEA HPI: HPI: Patient is a 30-year-old male who presents to the emergency department for nausea, vomiting, loss of smell, dizziness. Patient reports that he started having symptoms last week and was seen in this emergency department on Thursday for similar complaints and he had a negative work-up. He states that his symptoms had improved and then he ate a big meal last night and started having nausea and vomiting with epigastric pain. He reports that the meal last night was spicy. He reports vomiting 1 time this morning. He denies any diarrhea, fevers, loss of taste, cough, shortness of breath, sick exposures. (ABDON GUDINO APRN) Review of Systems: Review of Systems: Constitutional: negative unless reported in HPI Eyes: negative unless reported in HPI HENT: negative unless reported in HPI Respiratory: negative unless reported in HPI Cardiovascular: negative unless reported in HPI GI: negative unless reported in HPI : negative unless reported in HPI Musculoskeletal: negative unless reported in HPI Integument: negative unless reported in HPI Neurologic: negative unless reported in HPI Endocrine: negative unless reported in HPI Lymphatic: negative unless reported in HPI Psychiatric: negative unless reported in HPI (ABDON GUDINO APRN) Current Medications: Current Meds: Current Medications Medications (Trade) Dose Ordered Sig/Tyrone Start Time Stop Time Status Last Admin Dose Admin Multi-Ingredient Mouthwash/Gargle (Gi Cocktail) 20 ml 1X ONCE 03/23/21 11:30 03/23/21 11:31 UNV Ondansetron HCl (Zofran) 4 mg 1X ONCE 03/23/21 11:30 03/23/21 11:31 UNV Sodium Chloride 1,000 ml @ 1,000 mls/hr 1X ONCE 03/23/21 11:30 03/23/21 12:29 UNV (ABDON GUDINO APRN) Allergies: Allergies: Allergies Coded Allergies Type Severity Reaction Last Updated Verified No Known Drug Allergies 03/23/21 No (ABDON GUDINO APRN) Physical Exam: PE: Constitutional: Well developed, well nourished, no acute distress, non-toxic appearance. [] HENT: Normocephalic, atraumatic, bilateral external ears normal, oropharynx moist, no oral exudates, nose normal. [] Eyes: PERRL, EOMI, conjunctiva normal, no discharge. [] Neck: Normal range of motion, no tenderness, supple, no stridor. [] Cardiovascular:Heart rate regular rhythm, no murmur [] Lungs & Thorax: Bilateral breath sounds clear to auscultation [] Abdomen: Bowel sounds normal, soft, mild tenderness with palpation to epigastric and medial upper abdomen, no masses, no abdominal rigidity or guarding, no no pulsatile masses. [] Skin: Warm, dry, no erythema, no rash. [] Back: Normal range of motion, Extremities: No tenderness, no cyanosis, no clubbing, ROM intact, no edema. [] Neurologic: Alert and oriented X 3, normal motor function, normal sensory function, no focal deficits noted. [] Psychologic: Affect normal, judgement normal, mood normal. [] (ABDON GUDINO APRN) Current Patient Data: Labs: Laboratory Tests Test 03/23/21 11:51 White Blood Count 7.4 x10^3/uL Red Blood Count 4.68 x10^6/uL Hemoglobin 14.7 g/dL Hematocrit 43.8 % Mean Corpuscular Volume 93 fL Mean Corpuscular Hemoglobin 31 pg Mean Corpuscular Hemoglobin Concent 34 g/dL Red Cell Distribution Width 13.4 % Platelet Count 245 x10^3/uL Neutrophils (%) (Auto) 61 % Lymphocytes (%) (Auto) 29 % Monocytes (%) (Auto) 9 % Eosinophils (%) (Auto) 1 % Basophils (%) (Auto) 1 % Neutrophils # (Auto) 4.5 x10^3uL Lymphocytes # (Auto) 2.1 x10^3/uL Monocytes # (Auto) 0.6 x10^3/uL Eosinophils # (Auto) 0.1 x10^3/uL Basophils # (Auto) 0.0 x10^3/uL Urine Collection Type Unknown Urine Color Yellow Urine Clarity Clear Urine pH 6.0 Urine Specific [place] >=1.030 Urine Protein Neg Urine Glucose (UA) Neg mg/dL Urine Ketones (Stick) Neg mg/dL Urine Blood Neg Urine Nitrite Neg Urine Bilirubin Neg Urine Urobilinogen Dipstick 1.0 mg/dL Urine Leukocyte Esterase Neg Urine RBC Occ /HPF Urine WBC 1-4 /HPF Urine Squamous Epithelial Cells Few /LPF Urine Bacteria 0 /HPF Urine Mucus Slight /LPF Sodium Level 140 mmol/L Potassium Level 4.0 mmol/L Chloride Level 101 mmol/L Carbon Dioxide Level 30 mmol/L Anion Gap 9 Blood Urea Nitrogen 11 mg/dL Creatinine 1.3 mg/dL Estimated GFR (Cockcroft-Gault) 78.4 BUN/Creatinine Ratio 8 Glucose Level 97 mg/dL Calcium Level 8.7 mg/dL Total Bilirubin 0.3 mg/dL Aspartate Amino Transf (AST/SGOT) 12 U/L Alanine Aminotransferase (ALT/SGPT) 19 U/L Alkaline Phosphatase 56 U/L Total Protein 7.6 g/dL Albumin 4.3 g/dL Albumin/Globulin Ratio 1.3 Lipase 105 U/L Influenza Type A (Rapid) Negative Influenza Type B (Rapid) Negative SARS-CoV-2 Antigen (Rapid) Negative Current Medications Medications (Trade) Dose Ordered Sig/Tyrone Route PRN Reason Start Time Stop Time Status Last Admin Dose Admin Sodium Chloride 1,000 ml @ 1,000 mls/hr 1X ONCE IV 03/23/21 11:30 03/23/21 12:29 DC 03/23/21 11:30 Ondansetron HCl (Zofran) 4 mg 1X ONCE IVP 03/23/21 11:30 03/23/21 11:31 DC 03/23/21 11:54 Multi-Ingredient Mouthwash/Gargle (Gi Cocktail) 20 ml 1X ONCE PO 03/23/21 11:30 03/23/21 11:31 DC 03/23/21 11:54 Iohexol (Omnipaque 300 Mg/ml) 75 ml 1X ONCE IV 03/23/21 12:00 03/23/21 12:01 DC 03/23/21 12:09 Vital Signs: Vital Signs Date Time Temp Pulse Resp B/P (MAP) Pulse Ox O2 Delivery O2 Flow Rate FiO2 03/23/21 11:16 98.5 88 18 139/92 (108) Room Air (ABDON GUDINO APRN) EKG: EKG: [] (ABDON GUDINO APRN) Radiology/Procedures: Radiology/Procedures: []PROCEDURE: CT ABD PELV W/ IV CONTRST ONLY CT ABDOMEN+PELVIS W dated 03/23/2021 12:04 PM Indication:Reason: abdominal pain, n/v / Spl. Instructions: omni 300 75iv only, >60GFR / History: Comparison: No comparison is available. Technique: CT images were made through the abdomen and pelvis using infusion of 75 mL Omnipaque 300. No oral contrast was given. One or more of the following individualized dose reduction techniques were utilized for this examination: 1. Automated exposure control 2. Adjustment of the mA and/or kV according to patient size 3. Use of iterative reconstruction technique Findings: Lung bases are clear. The liver and spleen are homogeneous in density and normal in configuration. Both kidneys enhance with contrast. No mass or obstruction is seen. The adrenal glands are not enlarged. The pancreas appears normal. No retroperitoneal or mesenteric adenopathy is seen. There is no apparent abdominal mass or inflammatory process. There is no evidence of bowel obstruction. A normal appendix is seen arising from the cecum. Evaluation of the colon is limited by lack of distention. Images through the pelvis show no apparent abnormality of the distal ureters or bladder. No pelvic or inguinal adenopathy is seen. There is no apparent pelvic mass or inflammatory process. IMPRESSION: No definite acute findings. The colon was poorly distended. Low-grade colitis would be difficult to detect, but there is no given history of diarrhea. Electronically signed by: Trinity Frazier Jr., MD (03/23/2021 12:17 PM) [id number] DICTATED AND SIGNED BY: TRINITY FRAZIER Jr, MD DATE: 03/23/21 1213 CC: ABDON GUDINO APRN; PCP,UNKNOWN ~MTH0 0 (ABDON GUDINO APRN) Heart Score: C/O Chest Pain: N/A Risk Factors: Risk Factors: DM, Current or recent (<one month) smoker, HTN, HLP, family history of CAD, obesity. Risk Scores: Score 0 - 3: 2.5% MACE over next 6 weeks - Discharge Home Score 4 - 6: 20.3% MACE over next 6 weeks - Admit for Clinical Observation Score 7 - 10: 72.7% MACE over next 6 weeks - Early Invasive Strategies (ABDON GUDINO APRN) Course & Med Decision Making: Course & Med Decision Making Pertinent Labs and Imaging studies reviewed. (See chart for details) [] Patient presents to the emergency department regarding nausea, vomiting, dizziness, loss of smell and mild epigastric abdominal pain. Patient was seen in this emergency department on Thursday and had negative lab work. Work-up in the ER consisted of blood work, urinalysis and COVID testing. Patient will be treated with IV fluids, nausea medication and a GI cocktail as he reports that his epigastric pain was worse after eating spicy dinner. Patient was able to tolerate oral intake in the emergency department. Patient's blood work was unremarkable. Urinalysis showed no acute findings. CT scan of abdomen and pelvis was also negative. Rapid influenza and COVID testing was negative. Given patient's history of loss of smell with nausea and vomiting it is a possibility this being a rapid COVID test is a false negative given that his symptoms started a week ago. Following treatment, patient reports that his symptoms have improved. Patient will be discharged home with nausea medication. He was advised to increase his fluids and alter his diet. Educated on brat diet. Vital signs are stable and he is in no acute distress. I discussed with patient all findings and diagnostic testing as well as the need to follow-up with PCP for further evaluation and treatment or return to the ER if any new or worsening symptoms. Strict return precautions were also discussed at length. Patient voiced understanding and agreement with the plan. Patient is hemodynamically stable at the time of disposition. (ABDON GUDINO APRN) Dragon Disclaimer: Dragon Disclaimer: This electronic medical record was generated, in whole or in part, using a voice recognition dictation system. (ABDON GUDINO APRN) Departure Departure: Impression: Primary Impression: Nausea Disposition: 01 HOME / SELF CARE / HOMELESS Condition: GOOD Referrals: PCP,UNKNOWN (PCP) Patient Instructions: Nausea and Vomiting Additional Instructions: You were seen in the emergency department today for nausea, vomiting and dizziness. Your blood work was unremarkable. The CT scan of your abdomen and pelvis showed no acute findings. Your rapid influenza test was negative. Your rapid COVID test was negative. Given that you have symptoms of COVID including nausea, vomiting and loss of smell, it is likely that your rapid negative test is a false negative especially given the fact that your symptoms started 1 week ago. Increase your fluids. You are being discharged home with nausea medication that you can take as needed. I would stick to a clear liquid diet for the rest of today which includes broths, Gatorade, Jell-O. Following today please stick to a bland diet for the next 24 hours. We recommend a brat diet which includes bananas, rice, applesauce and toast. Please avoid eating any spicy, greasy or fatty foods. Follow-up with your primary care provider on Thursday regarding your ER visit. Return to the emergency department if you develop worsening of your abdominal pain, intractable nausea or vomiting, high fevers refractory to treatment, urinary symptoms, blood in your stools or vomit, syncope, chest pain, shortness of breath or any new or worsening concerns. 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 I was available for consultation as needed during the patient's visit in the emergency department. I agree with the clinical impression, plan, and disposition. (MARIA ELENA BELL DO) ABDON GUDINO APRN Mar 23, 2021 11:34 MARIA ELENA BELL DO Mar 24, 2021 01:22
[2021-03-23] MEDS ORDERED: IOHEXOL 300 MG/ML 75 ML VIAL. IV ONE (12:00)
[2021-03-23 12:19] LABS: BASO % 1 % (0-3); EOS # 0.1 x10^3/uL (0.0-0.7); EOS % 1 % (0-3); HEMATOCRIT 43.8 % (39.0-53.0); HEMOGLOBIN 14.7 g/dL (13.0-17.5); LYMPH # 2.1 x10^3/uL (1.0-4.8); LYMPH % 29 % (24-48); MEAN CORPUSCULAR HEMOGLOBIN 31 pg (25-35); MEAN CORPUSCULAR HGB CONC 34 g/dL (31-37); MEAN CORPUSCULAR VOLUME 93 fL (79-100); MONO # 0.6 x10^3/uL (0.0-1.1); MONO % 9 % (0-9); NEUT # 4.5 x10^3uL (1.8-7.7); NEUT % 61 % (31-73); PLATELET COUNT 245 x10^3/uL (140-400); RED BLOOD COUNT 4.68 x10^6/uL (4.30-5.70); RED CELL DISTRIBUTION WIDTH 13.4 % (11.5-14.5); WHITE BLOOD COUNT 7.4 x10^3/uL (4.0-11.0)
--- NOTE | 2021-03-23 12:20 | RAD ---
CT ABDOMEN+PELVIS W dated 03/23/2021 12:04 PM Indication:Reason: abdominal pain, n/v / Spl. Instructions: omni 300 75iv only, >60GFR / History: Comparison: No comparison is available. Technique: CT images were made through the abdomen and pelvis using infusion of 75 mL Omnipaque 300. No oral contrast was given. One or more of the following individualized dose reduction techniques were utilized for this examinat ion: 1. Automated exposure control 2. Adjustment of the mA and/or kV according to patient size 3. Use of iterative reconstruction technique Findings: Lung bases are clear. The liver and spleen are homogeneous in density and normal in configuration. Adrien th kidneys enhance with contrast. No mass or obstruction is seen. The adrenal glands are not enlarged . The pancreas appears normal. No retroperitoneal or mesenteric adenopathy is seen. There is no appar ent abdominal mass or inflammatory process. There is no evidence of bowel obstruction. A normal appen kobe is seen arising from the cecum. Evaluation of the colon is limited by lack of distention. Images through the pelvis show no apparent abnormality of the distal ureters or bladder. No pelvic or inguinal adenopathy is seen. There is no apparent pelvic mass or inflammatory process. IMPRESSION: No definite acute findings. The colon was poorly distended. Low-grade colitis would be difficult to d etect, but there is no given history of diarrhea. Electronically signed by: Nicola Rosas Jr., MD (03/23/2021 12:17 PM) [id number]
[2021-03-23 12:26] LABS: CALCIUM 8.7 mg/dL (8.5-10.1); CREATININE 1.3 mg/dL (0.7-1.3); GFR 78.4
[2021-03-23 12:32] LABS: ALBUMIN 4.3 g/dL (3.4-5.0); ALBUMIN/GLOBULIN RATIO 1.3 (1.0-1.7); BACTERIA,URINE 0 /HPF (0-FEW); BILIRUBIN,URINE NEG (NEG); CLARITY,URINE CLEAR; COLOR,URINE YELLOW; GLUCOSE,URINE NEG (NEG); NITRITE,URINE NEG (NEG); RBC,URINE OCC /HPF (0-2); SQUAMOUS EPITHELIAL CELL,UR FEW /LPF; TOTAL BILIRUBIN 0.3 mg/dL (0.2-1.0); TOTAL PROTEIN 7.6 g/dL (6.4-8.2)
[2021-03-23 12:33] LABS: INFLUENZA A PATIENT NEGATIVE (NEGATIVE); INFLUENZA B PATIENT NEGATIVE (NEGATIVE)
[2021-03-23] MEDS ORDERED: ONDA4TAB12 PO (12:46)
[2021-03-23 13:21] VITALS: BP 145/80
== END 2021-03-23 13:27 | disposition home or self-care (01) ==
LOC: ER 11:00
DX: R11.2 Nausea with vomiting, unspecified (principal); R42 Dizziness and giddiness; R10.13 Epigastric pain; Z20.822 Contact with and (suspected) exposure to COVID-19
CPT/HCPCS: 36415; 74177; 80053; 81001; 83690; 85025; 87428; 96361; 96374; 99285; J2405; J7030; Q9967

== ENCOUNTER 2021-05-28 11:38 | Emergency (ER) | payer OTHER ==
[~2021-05-28] VITALS: Ht 180.3 cm; Wt 59.3 kg
[~2021-05-28 11:38] MED LIST changes: +ONDA4TAB12 PO
[2021-05-28] MEDS ORDERED: IV NORMAL SALINE 1,000ML 1,000 ML IV ONE (12:15)
[2021-05-28] MEDS ORDERED: ONDANSETRON PF 4 MG/2 ML VIAL. ONE (12:15)
[2021-05-28] MEDS ORDERED: ONDANSETRON PF 4 MG/2 ML VIAL. IVP ONE (12:15)
--- NOTE | 2021-05-28 12:20 | PHYS DOC ---
Past History Past Medical History: No Pertinent History Past Surgical History: No Surgical History Smoking: Non-smoker Alcohol Use: None Drug Use: None General Adult EDM: Chief Complaint: vomiting HPI: HPI: 30-year-old male presents with nausea and vomiting. The patient has been having intermittent nausea at random since he had COVID-19 in February 2021. He presents today because the nausea escalated to vomiting and he has had at least 3 episodes today. He does not take any medications for his nausea. He does have a history of GERD and also does not take medication for this. He is on Topamax for migraine headaches. He has no other complaints this time. Review of Systems: Review of Systems: Constitutional: Denies fever or chills Eyes: Denies change in visual acuity HENT: Denies nasal congestion or sore throat Respiratory: Denies cough or shortness of breath Cardiovascular: Denies chest pain or edema GI: Nausea, vomiting. Denies abdominal pain, bloody stools or diarrhea : Denies dysuria Musculoskeletal: Denies back pain or joint pain Integument: Denies rash Neurologic: Denies headache, focal weakness or sensory changes Endocrine: Denies polyuria or polydipsia Lymphatic: Denies swollen glands Psychiatric: Denies depression or anxiety Current Medications: Current Meds: Current Medications Medications (Trade) Dose Ordered Sig/Tyrone Start Time Stop Time Status Last Admin Dose Admin Ondansetron HCl (Zofran) 4 mg STK-MED ONCE 05/28/21 12:15 05/28/21 12:16 DC Sodium Chloride 1,000 ml @ 1,000 mls/hr 1X ONCE 05/28/21 12:15 05/28/21 13:14 Allergies: Allergies: Allergies Coded Allergies Type Severity Reaction Last Updated Verified No Known Drug Allergies 03/23/21 No Physical Exam: PE: Constitutional: Well developed, well nourished, no acute distress, non-toxic appearance. [] HENT: Normocephalic, atraumatic, bilateral external ears normal, oropharynx moist, no oral exudates, nose normal. [] Eyes: PERRLA, EOMI, conjunctiva normal, no discharge. [] Neck: Normal range of motion, no tenderness, supple, no stridor. [] Cardiovascular: Heart rate regular rhythm, no murmur [] Lungs & Thorax: Bilateral breath sounds clear to auscultation [] Abdomen: Bowel sounds normal, soft, no tenderness, no masses, no pulsatile masses. [] Skin: Warm, dry, no erythema, no rash. [] Back: No tenderness, no CVA tenderness. [] Extremities: No tenderness, no cyanosis, no clubbing, ROM intact, no edema. [] Neurologic: Alert and oriented X 3, normal motor function, normal sensory function, no focal deficits noted. [] Psychologic: Affect normal, judgement normal, mood normal. [] EKG: EKG: [] Radiology/Procedures: Radiology/Procedures: [] Heart Score: C/O Chest Pain: N/A Risk Factors: Risk Factors: DM, Current or recent (<one month) smoker, HTN, HLP, family history of CAD, obesity. Risk Scores: Score 0 - 3: 2.5% MACE over next 6 weeks - Discharge Home Score 4 - 6: 20.3% MACE over next 6 weeks - Admit for Clinical Observation Score 7 - 10: 72.7% MACE over next 6 weeks - Early Invasive Strategies Course & Med Decision Making: Course & Med Decision Making Pertinent Labs and Imaging studies reviewed. (See chart for details) I have ordered a liter normal saline, 4 mg of Zofran, 40 mg Protonix. The patient's labs are unremarkable. He has had no further vomiting in the emergency room. We will discharge her with prescription for Zofran and I have recommended that he do a 14-day trial of Protonix [id number] to see if this helps with his GERD and nausea. He will follow-up with his primary physician as needed. He is stable for discharge at this time. [] Aric Disclaimer: Aric Disclaimer: This electronic medical record was generated, in whole or in part, using a voice recognition dictation system. Departure Departure: Impression: Primary Impression: Nausea & vomiting Qualified Codes: R11.2 - Nausea with vomiting, unspecified Additional Impression: GERD (gastroesophageal reflux disease) Qualified Codes: K21.9 - Gastro-esophageal reflux disease without esophagitis Disposition: HOME / SELF CARE / HOMELESS Condition: STABLE Referrals: ROXY WALKER DO, MPH (PCP) Patient Instructions: Nausea and Vomiting, [id number] Additional Instructions: You should try [id number] Protonix, Nexium, or omeprazole for 14 days for your heartburn and nausea. Scripts Ondansetron (ONDANSETRON ODT) 4 Mg Tab.rapdis 1 TAB PO PRN Q6-8HRS PRN for VOMITING, #16 TAB Prov: SIVA FARAH DO 05/28/21 SIVA FARAH DO May 28, 2021 12:20
[2021-05-28] MEDS ORDERED: PANTOPRAZOLE IV 40 MG VIAL. IVP ONE (12:30)
[2021-05-28 12:55] LABS: BASO # 0.1 x10^3/uL (0.0-0.2); BASO % 1 % (0-3); EOS % 0 % (0-3); HEMATOCRIT 47.9 % (39.0-53.0); HEMOGLOBIN 15.7 g/dL (13.0-17.5); LYMPH % 28 % (24-48); MEAN CORPUSCULAR HEMOGLOBIN 30 pg (25-35); MEAN CORPUSCULAR HGB CONC 33 g/dL (31-37); MEAN CORPUSCULAR VOLUME 93 fL (79-100); MONO # 0.5 x10^3/uL (0.0-1.1); MONO % 7 % (0-9); NEUT # 4.5 x10^3uL (1.8-7.7); NEUT % 65 % (31-73); PLATELET COUNT 250 x10^3/uL (140-400); RED BLOOD COUNT 5.16 x10^6/uL (4.30-5.70); RED CELL DISTRIBUTION WIDTH 13.9 % (11.5-14.5)
[2021-05-28 13:28] LABS: CALCIUM 8.8 mg/dL (8.5-10.1); CREATININE 1.1 mg/dL (0.7-1.3); GFR 95.1; POTASSIUM 4.6 mmol/L (3.5-5.1)
[2021-05-28 13:35] LABS: ALBUMIN 4.3 g/dL (3.4-5.0); ALBUMIN/GLOBULIN RATIO 1.2 (1.0-1.7); TOTAL BILIRUBIN 0.3 mg/dL (0.2-1.0)
[2021-05-28] MEDS ORDERED: ONDA4TAB12 PO (13:42)
[2021-05-28 14:00] VITALS: BP 127/77
== END 2021-05-28 14:05 | disposition home or self-care (01) ==
LOC: ER 11:38
DX: K21.9 Gastro-esophageal reflux disease without esophagitis (principal); R11.2 Nausea with vomiting, unspecified; Z86.16 Personal history of COVID-19
CPT/HCPCS: 36415; 80053; 85025; 96361; 96374; 96375; 99284; C9113; J2405; J7030

== ENCOUNTER 2021-06-09 08:30 | Emergency (ER) | payer OTHER ==
[~2021-06-09] VITALS: Ht 180.3 cm; Wt 59.3 kg
[2021-06-09 08:46] VITALS: BP 145/77
--- NOTE | 2021-06-09 08:54 | PHYS DOC ---
Past History Past Medical History: No Pertinent History Additional Past Medical Histor: MIGRAINES Past Surgical History: No Surgical History Smoking: Non-smoker Alcohol Use: None Drug Use: None Adult General Chief Complaint Chief Complaint: DIZZY/LIGHT HEADED HPI HPI Patient is an otherwise healthy 30-year-old male, in the who presents for chief complaint of some lightheadedness/dizziness last night. States he has had these symptoms on and off for the last couple of years and has had work-ups at his primary care physician with no cause found including from imaging and labs. States it comes and goes. States that last night he took a Flexeril for muscle spasms of trazodone for sleep and shortly after got lightheaded. Denies any recent traumas, travels, illnesses, fevers, chest pain, shortness of breath, abdominal pain, nausea, vomiting. Denies any numbness/weakness/tingling. Denies any alcohol or drug use. States he is eating and drinking normally for him. States he is making urine and stool normally for him. Patient came in requesting a work note for today because he was lightheaded last night and wants to rest today. States he has been working with the vestibular therapist and a neurologist and has had MRIs and CAT scans and was told this is most likely cervicogenic vertigo. States he is doing better with the therapy. Review of Systems Review of Systems Review of systems otherwise unremarkable except noted in HPI Allergies Allergies Allergies Coded Allergies Type Severity Reaction Last Updated Verified No Known Drug Allergies 05/28/21 No Physical Exam Physical Exam Constitutional: Well developed, well nourished, no acute distress, non-toxic appearance. [] HENT: Normocephalic, atraumatic, bilateral external ears normal, oropharynx moist, no oral exudates, nose normal. [] Eyes: PERRLA, EOMI, conjunctiva normal, no discharge. [] Neck: Normal range of motion, no tenderness, supple, no stridor. [] Cardiovascular:Heart rate regular rhythm, no murmur [] Lungs & Thorax: Bilateral breath sounds clear to auscultation [] Abdomen: soft, no tenderness, no masses, no pulsatile masses. [] Skin: Warm, dry, no erythema, no rash. [] Back: No tenderness, no CVA tenderness. [] Extremities: No tenderness, no cyanosis, no clubbing, ROM intact, no edema. [] Neurologic: Alert and oriented X 3, normal motor function, normal sensory function, able to sit, stand and walk without issue, no focal deficits noted. [] Psychologic: Affect normal, judgement normal, mood normal. [] EKG EKG [] Radiology/Procedures Radiology/Procedures [] Heart Score C/O Chest Pain: No Risk Factors: Risk Factors: DM, Current or recent (<one month) smoker, HTN, HLP, family history of CAD, obesity. Risk Scores: Risk Factors: DM, Current or recent (<one month) smoker, HTN, HLP, family history of CAD, obesity. Course & Med Decision Making Course & Med Decision Making Patient is a 30-year-old male who presents with a chief complaint of episode of dizziness last night Vital signs nonconcerning. Physical exam noted above. Given meclizine. EKG with normal rate, normal rhythm, no STEMI Patient asymptomatic in the ED. Given a work note at patient's request for today. Advised to follow-up tomorrow with primary care physician Gave return precautions to the ED. Patient grateful, verbalized understanding and agreed with plan of discharge. Dragon Disclaimer Dragon Disclaimer This electronic medical record was generated, in whole or in part, using a voice recognition dictation system. Departure Departure: Impression: Primary Impression: Dizzy spells Disposition: 01 HOME / SELF CARE / HOMELESS Condition: STABLE Referrals: ROXY WALKER DO, MPH (PCP) Patient Instructions: Dizziness, Meclizine chewable tablets Additional Instructions: Fever coming into the emergency department tonight allowing us to take care of you. Please read the attached information carefully to go over things we discussed. Please stay well-hydrated and take [id number] meclizine/Bonine twice daily as needed for your dizzy spells. You are given a work note at your request. Please follow-up first thing tomorrow morning with your primary care physician update on your ED visit and set up a follow-up as soon as you can. Please come back with new or concerning symptoms as discussed NICOL BERNAL MD Jun 09, 2021 08:54
[2021-06-09] MEDS ORDERED: MECLIZINE 12.5 MG TABLET. PO ONE (09:00)
--- NOTE | 2021-06-09 18:58 | EKG ---
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
--- NOTE | 2021-06-10 00:44 | EKG ---
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
== END 2021-06-09 09:42 | disposition home or self-care (01) ==
LOC: ER 08:30
DX: R42 Dizziness and giddiness (principal); G43.909 Migraine, unspecified, not intractable, without status migrainosus
CPT/HCPCS: 93005; 99283

== ENCOUNTER 2021-07-01 10:27 | Emergency (ER) | payer OTHER ==
[~2021-07-01] VITALS: Ht 180.3 cm; Wt 61.5 kg
[2021-07-01] MEDS: IV NORMAL SALINE 1,000ML 1,000 ML IV ONE (11:15)
[2021-07-01] MEDS: FAMOTIDINE 20 MG/2 ML VIAL IVP ONE (11:28)
[2021-07-01] MEDS: ONDANSETRON PF 4 MG/2 ML VIAL. IVP ONE (11:28)
--- NOTE | 2021-07-01 11:43 | PHYS DOC ---
Past History Past Medical History: No Pertinent History Additional Past Medical Histor: MIGRAINES, COVID 2020 Past Surgical History: No Surgical History Smoking: Non-smoker Alcohol Use: Occasionally Drug Use: None General Adult EDM: Chief Complaint: NAUSEA/VOMITING/DIARRHEA HPI: HPI: Patient is a 30-year-old male presents with nausea and vomiting that started this morning. Patient is thrown up several times. He has some crampy abdominal pain in association with bouts of nausea, does not have any localized pain though. No fever that he is aware of. No chest pain, cough, dysuria or diarrhea. Review of Systems: Review of Systems: Constitutional: Denies fever Eyes: Denies change in visual acuity or eye pain HENT: Denies sore throat Respiratory: Denies shortness of breath Cardiovascular: Denies chest pain GI: Denies abd pain : Denies dysuria Musculoskeletal: Denies back or extremity injury Integument: Denies rash or skin lesions Neurologic: Denies headache, focal weakness or sensory changes All other systems were reviewed and found to be within normal limits, except as documented in this note. Current Medications: Current Meds: Current Medications Medications (Trade) Dose Ordered Sig/Tyrone Start Time Stop Time Status Last Admin Dose Admin Famotidine (Pepcid Vial) 20 mg 1X ONCE 07/01/21 11:15 07/01/21 11:16 DC 07/01/21 11:28 20 MG Ondansetron HCl (Zofran) 4 mg 1X ONCE 07/01/21 11:15 07/01/21 11:16 DC 07/01/21 11:28 4 MG Sodium Chloride 1,000 ml @ 1,000 mls/hr 1X ONCE 07/01/21 11:15 07/01/21 12:14 07/01/21 11:15 1,000 MLS/HR Allergies: Allergies: Allergies Coded Allergies Type Severity Reaction Last Updated Verified No Known Drug Allergies 07/01/21 No Physical Exam: PE: Constitutional: Well developed, well nourished, no acute distress, non-toxic appearance. HENT: Normocephalic, atraumatic, bilateral external ears normal, mucosa moist, nose normal. Eyes: EOMI, conjunctiva normal, no discharge. Neck: Normal range of motion, supple, no stridor, no meningeal signs. Cardiovascular: Regular rate and rhythm Lungs & Thorax: Bilateral breath sounds clear to auscultation Abdomen: Soft, no tenderness or obvious masses Skin: Warm, dry, no erythema, no rash. Extremities: No tenderness, no cyanosis, no clubbing, ROM intact, no edema. Neurologic: Alert and oriented, normal motor function, normal sensory function, no focal deficits noted. Psychologic: Affect normal, judgement normal, mood normal. Current Patient Data: Vital Signs: Vital Signs Date Time Temp Pulse Resp B/P (MAP) Pulse Ox O2 Delivery O2 Flow Rate FiO2 07/01/21 10:45 98.4 78 18 132/83 (99) 97 Room Air EKG: EKG: [] Radiology/Procedures: Radiology/Procedures: [] Heart Score: C/O Chest Pain: No Risk Factors: Risk Factors: DM, Current or recent (<one month) smoker, HTN, HLP, family history of CAD, obesity. Risk Scores: Score 0 - 3: 2.5% MACE over next 6 weeks - Discharge Home Score 4 - 6: 20.3% MACE over next 6 weeks - Admit for Clinical Observation Score 7 - 10: 72.7% MACE over next 6 weeks - Early Invasive Strategies Course & Med Decision Making: Course & Med Decision Making Pertinent Labs and Imaging studies reviewed. (See chart for details) [] Is a 30-year-old male nausea and vomiting. Patient was given a liter of normal saline, 4 of Zofran and 20 Pepcid. On reassessment symptoms are much improved. Labs are unremarkable. Will discharge patient with prescriptions for Zofran and Pepcid orally, he is in stable condition at this time. Aric Disclaimer: Aric Disclaimer: This electronic medical record was generated, in whole or in part, using a voice recognition dictation system. Departure Departure: Impression: Primary Impression: Nausea and vomiting Disposition: HOME / SELF CARE / HOMELESS Condition: STABLE Referrals: [facility] WALKER DO, [facility] (PCP) Patient Instructions: Nausea and Vomiting Scripts Famotidine (PEPCID) 20 Mg Tablet 1 TAB PO BID for abd pain, #20 TAB 3 Refills Prov: FERNANDO TRIVEDI MD 07/01/21 Ondansetron (ONDANSETRON ODT) 4 Mg Tab.rapdis 1 TAB PO Q6HRS for nausea, #20 TAB Prov: FERNANDO TRIVEDI MD 07/01/21 FERNANDO TRIVEDI MD Jul 01, 2021 11:43
[2021-07-01 11:48] LABS: BASO % 1 % (0-3); EOS # 0.1 x10^3/uL (0.0-0.7); EOS % 1 % (0-3); HEMATOCRIT 45.7 % (39.0-53.0); HEMOGLOBIN 15.4 g/dL (13.0-17.5); LYMPH # 1.6 x10^3/uL (1.0-4.8); LYMPH % 24 % (24-48); MEAN CORPUSCULAR HEMOGLOBIN 31 pg (25-35); MEAN CORPUSCULAR HGB CONC 34 g/dL (31-37); MEAN CORPUSCULAR VOLUME 92 fL (79-100); MONO # 0.6 x10^3/uL (0.0-1.1); MONO % 9 % (0-9); NEUT # 4.6 x10^3uL (1.8-7.7); NEUT % 66 % (31-73); PLATELET COUNT 243 x10^3/uL (140-400); RED BLOOD COUNT 4.94 x10^6/uL (4.30-5.70); RED CELL DISTRIBUTION WIDTH 13.2 % (11.5-14.5); WHITE BLOOD COUNT 6.9 x10^3/uL (4.0-11.0)
[2021-07-01 12:01] LABS: CALCIUM 9.1 mg/dL (8.5-10.1); CREATININE 1.2 mg/dL (0.7-1.3); POTASSIUM 4.7 mmol/L (3.5-5.1)
[2021-07-01 12:07] LABS: ALBUMIN 4.1 g/dL (3.4-5.0); ALBUMIN/GLOBULIN RATIO 1.2 (1.0-1.7); TOTAL BILIRUBIN 0.5 mg/dL (0.2-1.0); TOTAL PROTEIN 7.6 g/dL (6.4-8.2)
[2021-07-01 12:37] VITALS: BP 136/88
[2021-07-01] MEDS ORDERED: ONDA4TAB12 PO (12:44)
[2021-07-01] MEDS ORDERED: FAMO-63 PO (12:44)
== END 2021-07-01 12:56 | disposition home or self-care (01) ==
LOC: ER 10:27
DX: R11.2 Nausea with vomiting, unspecified (principal); R10.9 Unspecified abdominal pain; G43.909 Migraine, unspecified, not intractable, without status migrainosus
CPT/HCPCS: 36415; 80053; 83690; 85025; 96361; 96374; 96375; 99284; J2405; J3490; J7030

== ENCOUNTER 2021-07-25 07:43 | Emergency (ER) | payer OTHER ==
[~2021-07-25] VITALS: Ht 180.3 cm; Wt 61.5 kg
[~2021-07-25 07:43] MED LIST changes: +FAMO-63 PO
[2021-07-25] MEDS ORDERED: diphenhydrAMINE 50 MG/ML VIAL IVP ONE (08:00)
[2021-07-25] MEDS ORDERED: IV NORMAL SALINE 1,000ML 1,000 ML IV SCH (08:00)
[2021-07-25] MEDS ORDERED: PROCHLORPERAZINE 10 MG/2 ML VIAL. IV ONE (08:00)
--- NOTE | 2021-07-25 08:19 | PHYS DOC ---
Past History Past Medical History: No Pertinent History Additional Past Medical Histor: MIGRAINES, COVID 2020, TINNITUS Past Surgical History: No Surgical History Smoking: Non-smoker Alcohol Use: Rarely Drug Use: None Adult General Chief Complaint Chief Complaint: DIZZY/LIGHT HEADED HPI HPI Patient is a 30 year old male who presents with complaint of dizziness, headache, and nausea. The patient states that he suffers from chronic recurrent migraine headaches and has been dealing with symptoms of dizziness over the past 2 years. The patient states that he is underwent extensive brain imaging regarding this diagnosis with no confirmed etiology. Patient states that he recently started on Zoloft and naproxen for treatment of symptoms. He states that after starting the Zoloft, his dizziness symptoms worsen. Notes that he had significant migraine headache yesterday but notes that this has improved today. Complains of continued nausea which has improved but is still present currently and states that he currently has a mild throbbing right-sided headache. Denies any unilateral weakness, vision changes, or difficulty with speech or swallowing. States that he has not been able to eat or drink much due to his nausea and is currently afraid to do so as he feels he may throw anything back up that he tries to consume. [] Review of Systems Review of Systems Constitutional: Denies fever or chills [] Eyes: Denies change in visual acuity, redness, or eye pain [] HENT: Denies nasal congestion or sore throat [] Respiratory: Denies cough or shortness of breath [] Cardiovascular: Denies chest pain or edema [] GI: Nausea, vomiting, denies abdominal pain, bloody stools or diarrhea [] : Denies dysuria or hematuria [] Musculoskeletal: Denies back pain or joint pain [] Integument: Denies rash or skin lesions [] Neurologic: Headache, dizziness, denies focal weakness or sensory changes [] All other systems were reviewed and found to be within normal limits, except as documented in this note. Current Medications Current Medications Current Medications Medications (Trade) Dose Ordered Sig/Tyrone Start Time Stop Time Status Last Admin Dose Admin Diphenhydramine HCl (Benadryl) 12.5 mg 1X ONCE 07/25/21 08:00 07/25/21 08:01 UNV Prochlorperazine Edisylate (Compazine) 10 mg 1X ONCE 07/25/21 08:00 07/25/21 08:01 UNV Sodium Chloride 1,000 ml @ 1,000 mls/hr Q1H 07/25/21 08:00 07/25/21 08:59 UNV Allergies Allergies Allergies Coded Allergies Type Severity Reaction Last Updated Verified No Known Drug Allergies 07/01/21 No Physical Exam Physical Exam Constitutional: Alert, afebrile, no acute distress. [] HENT: Normocephalic, atraumatic, bilateral external ears normal, oropharynx moist, no oral exudates, nose normal. [] Eyes: PERRLA, EOMI, conjunctiva normal, no discharge. [] Neck: Normal range of motion, no tenderness, supple, no stridor. [] Cardiovascular:Heart rate regular rhythm, no murmur [] Lungs & Thorax: Bilateral breath sounds clear to auscultation [] Abdomen: Bowel sounds normal, soft, no tenderness, no masses, no pulsatile masses. [] Skin: Warm, dry, no erythema, no rash. [] Back: No tenderness, no CVA tenderness. [] Extremities: No tenderness, no cyanosis, no clubbing, ROM intact, no edema. [] Neurologic: Alert and oriented X 3, normal motor function, normal sensory function, no focal deficits noted. [] Current Patient Data Vital Signs Vital Signs Date Time Temp Pulse Resp B/P (MAP) Pulse Ox O2 Delivery O2 Flow Rate FiO2 07/25/21 07:50 98.1 62 18 140/79 (99) 97 Lab Results Laboratory Tests Test 07/25/21 08:14 07/25/21 09:05 07/25/21 09:43 White Blood Count 6.4 x10^3/uL Red Blood Count 4.90 x10^6/uL Hemoglobin 15.1 g/dL Hematocrit 45.5 % Mean Corpuscular Volume 93 fL Mean Corpuscular Hemoglobin 31 pg Mean Corpuscular Hemoglobin Concent 33 g/dL Red Cell Distribution Width 13.3 % Platelet Count 203 x10^3/uL Neutrophils (%) (Auto) 63 % Lymphocytes (%) (Auto) 29 % Monocytes (%) (Auto) 6 % Eosinophils (%) (Auto) 1 % Basophils (%) (Auto) 1 % Neutrophils # (Auto) 4.0 x10^3uL Lymphocytes # (Auto) 1.8 x10^3/uL Monocytes # (Auto) 0.4 x10^3/uL Eosinophils # (Auto) 0.1 x10^3/uL Basophils # (Auto) 0.1 x10^3/uL Sodium Level mmol/L Potassium Level mmol/L Chloride Level mmol/L Carbon Dioxide Level 30 mmol/L Anion Gap 16 mmol/L Blood Urea Nitrogen 19 mg/dL Creatinine 1.2 mg/dL Estimated GFR (Cockcroft-Gault) 86.0 BUN/Creatinine Ratio 16 Glucose Level 85 mg/dL mg/dL Calcium Level 9.2 mg/dL Total Bilirubin 0.5 mg/dL Aspartate Amino Transf (AST/SGOT) 13 U/L Alanine Aminotransferase (ALT/SGPT) 29 U/L Alkaline Phosphatase 58 U/L Total Protein 7.3 g/dL Albumin 4.0 g/dL Albumin/Globulin Ratio 1.2 Urine Collection Type Unknown Urine Color Yellow Urine Clarity Clear Urine pH 7.0 Urine Specific [place] 1.025 Urine Protein Neg Urine Glucose (UA) Neg mg/dL Urine Ketones (Stick) Neg mg/dL Urine Blood Neg Urine Nitrite Neg Urine Bilirubin Neg Urine Urobilinogen Dipstick 0.2 mg/dL Urine Leukocyte Esterase Neg Urine RBC 0 /HPF Urine WBC 0 /HPF Urine Squamous Epithelial Cells Occ /LPF Urine Bacteria 0 /HPF Bedside Hemoglobin gm/dL Bedside Hematocrit % Bedside Sodium 141 mmol/L Bedside Potassium 4.1 mmol/L Bedside Chloride 105 mmol/L Bedside Total CO2 mmol/L Bedside Blood Urea Nitrogen mg/dL Bedside Creatinine mg/dL Bedside Ionized Calcium (Janey) mmol/L Current Medications Medications (Trade) Dose Ordered Sig/Tyrone Route PRN Reason Start Time Stop Time Status Last Admin Dose Admin Sodium Chloride 1,000 ml @ 1,000 mls/hr Q1H IV 07/25/21 08:00 07/25/21 08:59 DC 07/25/21 08:20 Prochlorperazine Edisylate (Compazine) 10 mg 1X ONCE IV 07/25/21 08:00 07/25/21 08:16 DC 07/25/21 08:22 Diphenhydramine HCl (Benadryl) 12.5 mg 1X ONCE IVP 07/25/21 08:00 07/25/21 08:16 DC 07/25/21 08:21 EKG EKG Not performed [] Radiology/Procedures Radiology/Procedures Not performed [] Heart Score C/O Chest Pain: No Risk Factors: Risk Factors: DM, Current or recent (<one month) smoker, HTN, HLP, family history of CAD, obesity. Risk Scores: Risk Factors: DM, Current or recent (<one month) smoker, HTN, HLP, family history of CAD, obesity. Course & Med Decision Making Course & Med Decision Making Pertinent Labs and Imaging studies reviewed. (See chart for details) Patient was given IV fluids, Compazine, and Benadryl in the emergency department. On reevaluation, patient states he feels much better at this time. Is tolerating oral fluids without difficulty. Lab work was reviewed and is unremarkable. Condition has improved and patient is appropriate for discharge at this time. Recommend close follow-up with primary doctor in the next few days for reevaluation. Recommend return to the emergency department for any worsening symptoms. Patient voiced understanding and in agreement with treatme nt plan. [] Dragon Disclaimer Dragon Disclaimer This electronic medical record was generated, in whole or in part, using a voice recognition dictation system. Departure Departure: Impression: Primary Impression: Dizziness Additional Impression: Nausea Disposition: HOME / SELF CARE / HOMELESS Condition: IMPROVED Referrals: [facility] WALKER DO, [facility] (PCP) Patient Instructions: Dizziness, Nausea, Adult Additional Instructions: Follow-up with your primary care provider in the next few days for reevaluation. Return to the emergency department for any worsening symptoms. Scripts Ondansetron (ONDANSETRON ODT) 4 Mg Tab.rapdis 1 TAB PO Q8HRS PRN for NAUSEA/VOMITING, #16 TAB Prov: MARIN MURRIETA MD 07/25/21 Problem Qualifiers MARIN MURRIETA MD July 25, 2021 08:19
[2021-07-25 08:34] LABS: BASO # 0.1 x10^3/uL (0.0-0.2); BASO % 1 % (0-3); EOS # 0.1 x10^3/uL (0.0-0.7); EOS % 1 % (0-3); HEMATOCRIT 45.5 % (39.0-53.0); HEMOGLOBIN 15.1 g/dL (13.0-17.5); LYMPH # 1.8 x10^3/uL (1.0-4.8); LYMPH % 29 % (24-48); MEAN CORPUSCULAR HEMOGLOBIN 31 pg (25-35); MEAN CORPUSCULAR HGB CONC 33 g/dL (31-37); MEAN CORPUSCULAR VOLUME 93 fL (79-100); MONO # 0.4 x10^3/uL (0.0-1.1); MONO % 6 % (0-9); NEUT % 63 % (31-73); PLATELET COUNT 203 x10^3/uL (140-400); RED CELL DISTRIBUTION WIDTH 13.3 % (11.5-14.5); WHITE BLOOD COUNT 6.4 x10^3/uL (4.0-11.0)
[2021-07-25 09:55] LABS: ALBUMIN/GLOBULIN RATIO 1.2 (1.0-1.7); ALK PHOS 58 U/L (46-116); ALT (SGPT) 29 U/L (16-63); AST (SGOT) 13 U/L (15-37); BLOOD UREA NITROGEN 19 mg/dL (8-26); BUN/CREATININE RATIO 16 (6-20); CALCIUM 9.2 mg/dL (8.5-10.1); CARBON DIOXIDE 30 mmol/L (21-32); CREATININE 1.2 mg/dL (0.7-1.3); GLUCOSE 85 mg/dL (70-99); TOTAL BILIRUBIN 0.5 mg/dL (0.2-1.0); TOTAL PROTEIN 7.3 g/dL (6.4-8.2)
[2021-07-25 10:16] VITALS: BP 125/66
[2021-07-25 10:18] LABS: POTASSIUM ISTAT 4.1 mmol/L (3.5-5.0); SODIUM ISTAT 141 mmol/L (135-145)
[2021-07-25 10:25] LABS: BACTERIA,URINE 0 /HPF (0-FEW); CLARITY,URINE CLEAR; COLOR,URINE YELLOW; GLUCOSE,URINE NEG (NEG); NITRITE,URINE NEG (NEG); RBC,URINE 0 /HPF (0-2); SQUAMOUS EPITHELIAL CELL,UR OCC /LPF; UROBILINOGEN,URINE 0.2 mg/dL (0.2 mg/dL); WBC,URINE 0 /HPF (0-4)
[2021-07-25] MEDS ORDERED: ONDA4TAB12 PO (10:37)
== END 2021-07-25 10:47 | disposition home or self-care (01) ==
LOC: ER 07:43
DX: R42 Dizziness and giddiness (principal); R11.2 Nausea with vomiting, unspecified; G43.909 Migraine, unspecified, not intractable, without status migrainosus
CPT/HCPCS: 36415; 80047; 80053; 81001; 85025; 96361; 96374; 96375; 99285; J0780; J1200; J7030